=== PATIENT | male | born 1995 | race Caucasian/White ===

== ENCOUNTER 2016-06-18 23:49 | Emergency (ER) | payer OTHER ==
[2016-06-19 00:03] VITALS: RESP 16
--- NOTE | 2016-06-19 00:35 | EDPHY ---
H & P Stated Complaint: R TESTICLE PAIN Time Seen by Provider: 06/19/16 00:18 HPI/ROS: Chief complaint: Right testicle pain HPI: Patient presenting with 24 hours of right testicle pain. Is aching and constant. Has had a history of similar episodes which were free from the past. Never seen a doctor for it. Has not had any sexual intercourse for the last couple of months. There is no urethral discharge. No nausea or vomiting. Has not had any significant swelling. Look to symptoms up on the Internet is concerned he might have a testicular torsion. ROS: 10 point Review of Systems is negative except as noted in the HPI. Past medical history: None Medications: None Allergies: None Social history: Does not smoke, no alcohol, no other drug use Physical exam: Gen: Awake, Alert, No Distress HEENT: Nose: no rhinorrhea Eyes: PERRLA, EOMI Mouth: Moist mucosa Abd: Soft, non-tender, no guarding Genital: He has mild right testicular and epididymal tenderness on exam. Has normal cremasteric. Has normal lie. There is no scrotal swelling. There is no erythema. He is uncircumcised. There are no lesions. There is no lymphadenopathy. Ext: no edema, non-tender Skin: no rash Neuro: CN II-XII intact, Sensation grossly intact, Strength 5/5 in bilateral upper and lower extremities - Personal History Current Tetanus/Diphtheria Vaccine: Yes - Medical/Surgical History Hx Asthma: No Hx Chronic Respiratory Disease: No Hx Diabetes: No Hx Cardiac Disease: No Hx Renal Disease: No Hx Cirrhosis: No Hx Alcoholism: No Hx HIV/AIDS: No Hx Splenectomy or Spleen Trauma: No Other PMH: EYE OPERATION. DENIES PMH - Social History Smoking Status: Never smoked Constitutional: Initial Vital Signs Temperature (C) 36.7 C 06/19/16 00:00 Heart Rate 73 06/19/16 00:00 Respiratory Rate 16 06/19/16 00:00 Blood Pressure 139/87 H 06/19/16 00:00 O2 Sat (%) 95 06/19/16 00:00 O2 Delivery Mode Room Air Allergies/Adverse Reactions: No Known Allergies Allergy (Unverified 06/19/16 00:05) Home Medications: Medication Instructions Recorded NK [No Known Home Meds] 06/19/16 Medical Decision Making - Diagnostics Imaging: Testicular ultrasound, interpreted by Dr. Gonsalez, normal. No evidence of torsion or infection. - Data Points Laboratory Results: 06/19/16 00:55 Urine Color PALE YELLOW Urine Appearance CLEAR Urine pH 7.0 (5.0-7.5) Ur Specific [place] 1.008 (1.002-1.030) Urine Protein NEGATIVE (NEGATIVE) Urine Ketones NEGATIVE (NEGATIVE) Urine Blood NEGATIVE (NEGATIVE) Urine Nitrate NEGATIVE (NEGATIVE) Urine Bilirubin NEGATIVE (NEGATIVE) Urine Urobilinogen NEGATIVE EU EU (0.2-1.0) Ur Leukocyte Esterase NEGATIVE (NEGATIVE) Ur Culture Indicated? NOT INDICATED (NI) Urine Glucose NEGATIVE (NEGATIVE) Departure - Departure Disposition: Home, Routine, Self-Care Clinical Impression: Testicular pain Condition: Good Instructions: Testicle Pain (ED) Additional Instructions: Follow up with primary care doctor in 2-3 days if symptoms are not improving. You may take ibuprofen alternating with acetaminophen every 4 hours as needed for aches, pains, fevers, or chills.
[2016-06-19 01:17] LABS: COLOR PALE YELLOW; LEUKOCYTE ESTERASE,URINE NEGATIVE (NEGATIVE); NITRITE,URINE NEGATIVE (NEGATIVE)
[2016-06-19 01:32] VITALS: BP 108/58; PULSE 60; TEMP 98.2; O2SAT 94
== END 2016-06-19 01:51 | disposition home or self-care (01) ==
DX: N50.811 Right testicular pain (principal)

== ENCOUNTER → 2017-09-03 | Outpatient (CLI) | payer OTHER | LOC: BMCIMAGING 18:03 | PROVIDERS: ATTEND Family Medicine | DX: S82.034A Nondisplaced transverse fracture of right patella, initial encounter for closed fracture (principal); W19.XXXA Unspecified fall, initial encounter; Y93.02 Activity, running ==

== ENCOUNTER → 2017-09-15 | Outpatient (CLI) | payer OTHER | LOC: BMCIMAGING 14:24 | PROVIDERS: ATTEND Physician Assistant | DX: S82.001A Unspecified fracture of right patella, initial encounter for closed fracture (principal) ==

== ENCOUNTER → 2017-10-13 | Outpatient (CLI) | payer OTHER | LOC: BMCIMAGING 13:47 | PROVIDERS: ATTEND Physician Assistant | DX: S82.091D Other fracture of right patella, subsequent encounter for closed fracture with routine healing (principal) ==